=== PATIENT | female | born 2000 | race Two or more races ===

== ENCOUNTER 2024-04-04 04:55 | Inpatient (IN) ==
[2024-04-04 05:14] VITALS: BMI 21.2
[2024-04-04 05:24] LABS: BILIRUBIN,URINE NEGATIVE (NEGATIVE); BLOOD/HEMOGLOBIN,URINE NEGATIVE (NEGATIVE); GLUCOSE, URINE NEGATIVE (NEGATIVE); KETONES,URINE NEGATIVE (NEGATIVE); LEUKOCYTE ESTERASE ,URINE NEGATIVE (NEGATIVE); NITRITES,URINE NEGATIVE (NEGATIVE); PROTEIN,URINE NEGATIVE (NEGATIVE); UROBILINOGEN,URINE NORMAL (NORMAL)
[2024-04-04] MEDS: D5 1/2 NS 1,000 ML 1,000 ML IV ONE ×2 (05:26→18:16)
[2024-04-04 05:30] LABS: AMNISURE ROM TEST THERE IS A RUPTURE (NO RUPTURE); APPEARANCE,URINE CLEAR (CLEAR); COLOR,URINE YELLOW (YELLOW)
[2024-04-04 05:37] LABS: BASOPHILS % (AUTO) 0.3 % (0.2-1.0); EOSINOPHILS # (AUTO) 0.1 x10^3/uL (0.0-0.2); EOSINOPHILS % (AUTO) 0.7 % (0.9-2.9); HEMATOCRIT 40.8 % (36.0-47.0); HEMOGLOBIN 13.5 g/dL (12.0-16.0); LYMPHOCYTES # (AUTO) 3.4 X10^3/uL (1.3-2.9); LYMPHOCYTES % (AUTO) 27.8 % (21.0-51.0); MEAN CORPUSCULAR HEMOGLOBIN 30.9 pg (27.0-34.0); MEAN CORPUSCULAR HGB CONC 33.1 g/dL (33.0-35.0); MEAN CORPUSCULAR VOLUME 93.3 fL (80.0-100.0); MEAN PLATELET VOLUME 8.7 fL (7.4-11.0); MONOCYTES # (AUTO) 1.3 x10^3/uL (0.3-0.8); MONOCYTES % (AUTO) 10.6 % (0.0-13.0); NEUTROPHILS # (AUTO) 7.5 x10^3/uL (2.2-4.8); NEUTROPHILS % (AUTO) 60.6 % (42.0-75.0); PLATELET COUNT 221 X10^3/uL (150.0-450.0); RED BLOOD COUNT 4.37 X10^6/uL (3.5-5.4); RED CELL DISTRIBUTION WIDTH 13.3 % (11.6-16.5); WHITE BLOOD COUNT 12.3 X10^3/uL (3.6-10.0)
[2024-04-04 05:48] LABS: ALANINE AMINOTRANSFERASE 20 Units/L (12-78); ALBUMIN 2.8 g/dL (3.4-5.0); ALKALINE PHOSPHATASE 169 Units/L (46-116); ASPARTATE AMINO TRANSFERASE 24 Units/L (15-37); BLOOD UREA NITROGEN 6 mg/dL (7-18); CALCIUM 9.7 mg/dL (8.5-10.1); CARBON DIOXIDE 23.1 mmol/L (21-32); CHLORIDE 102 mmol/L (98-107); COR CA(FOR HYPOALB) 10.7 mg/dL (8.5-10.1); CREATININE 0.62 mg/dL (0.55-1.02); GLUCOSE 89 mg/dL (65-99); POTASSIUM 3.6 mmol/L (3.5-5.1); SODIUM 137 mmol/L (136-145); TOTAL PROTEIN 7.3 g/dL (6.4-8.2); eGFR NON BLACK RACES > 60 (>60)
[2024-04-04] MEDS: AMPICILLIN VIAL 2 GRAM 2 G in NS 100 ML IV + SPIKE MINIBAG* 100 ML IV SCH (06:23)
[2024-04-04] MEDS ORDERED: ZOFRAN INJ 4 MG VIAL IVP PRN (07:08)
[2024-04-04] MEDS ORDERED: REGLAN INJ 10 MG VIAL IVP PRN (07:08)
--- NOTE | 2024-04-04 07:08 | DR.OB ---
OB QUICK NOTE Assessment/Plan (1) Active labor at term: Assessment/Plan: L&D at 6:45am S-No complaint except CTX. O-Afebrile,VSS RDL=715 with good LTV, +accel, no decel. CTX=q 1 1/2 min., strong by palpation CVX=4cm/50%/0/VTX AROM with clear fluid. IUPC and FSE placed. A-IUP at 39 5/7 weeks in active labor +GBS P-Begin pitocin augmentation as needed Begin IV ABX in labor for +GBS F/U labs Anticipate
[2024-04-04] MEDS: OXYTOCIN 20 UNIT/1,000 ML-NS 20 UNIT/1,000 ML PLAST..BAG IV PRN (07:30)
[2024-04-04] MEDS: NUBAIN INJ 20 MG AMP IVP PRN (07:45)
[2024-04-04] MEDS: AMPICILLIN VIAL 1 GRAM 1 G in NS 50 ML IV 50 ML IV SCH (10:35)
[2024-04-04] MEDS: LR 1,000 ML IV 1,000 ML IV ONE (11:23)
[2024-04-04] MEDS: FENTANYL VIAL INJ 100 mcg ONE (12:16)
[2024-04-04] MEDS: NAROPIN EPIDURAL 0.2% 100 ML ONE (12:22)
[2024-04-04] MEDS ORDERED: MILK OF MAGNESIA PO PRN (16:55)
[2024-04-04] MEDS ORDERED: MOTRIN TAB 800 MG PO PRN (16:55)
[2024-04-04] MEDS ORDERED: AMBIEN PO PRN (16:55)
[2024-04-04] MEDS ORDERED: DERMOPLAST PAIN RELIEF SPRAY TOP PRN (16:55)
[2024-04-04] MEDS: AMPICILLIN VIAL 2 GRAM ONE (18:16)
[2024-04-04] MEDS: PITOCIN ONE (18:17)
[2024-04-04] MEDS: NUBAIN INJ 200 MG VIAL MULTIDOSE ONE ×2 (18:17→18:18)
[2024-04-04] MEDS: PITOCIN IVP ONE (18:17)
[2024-04-04] MEDS: NS 100 ML IV 100 ML ONE ×3 (18:17→18:21)
[2024-04-04] MEDS: D5 1/2 NS 1,000 ML 1,000 ML IV SCH (18:18)
[2024-04-04] MEDS: XYLOCAINE 1 % (PLAIN) ONE (18:18)
[2024-04-04] MEDS: OXYTOCIN 20 UNIT/1,000 ML-NS 20 UNIT/1,000 ML PLAST..BAG IV SCH (18:18)
[2024-04-04] MEDS: AMPICILLIN VIAL 1 GRAM ONE ×2 (18:20→18:21)
[2024-04-04] MEDS: BETADINE SOLN ONE (18:21)
[2024-04-04] MEDS: MOTRIN TAB 800 MG PO PRN (20:00)
[2024-04-05 04:53] LABS: HEMATOCRIT 40.5 % (36.0-47.0); HEMOGLOBIN 13.5 g/dL (12.0-16.0)
[2024-04-05] MEDS ORDERED: CONSULT PHARMACY - POTASSIUM & MAGNESIUM XX SCH ×2 (07:00)
[2024-04-05] MEDS: PRENATAL PLUS PO SCH (09:22)
[2024-04-05] MEDS: K-DUR TAB 20 MEQ PO SCH (09:22)
[2024-04-05] MEDS: ADACEL or BOOSTRIX TDaP VACCINE IM ONE (15:25)
[2024-04-06 11:25] VITALS: PULSE 76; TEMP 97.7; O2SAT 100
[2024-04-06 15:44] VITALS: BP 121/72
[2024-04-06 15:47] VITALS: RESP 18
== END 2024-04-06 15:30 | disposition home or self-care (01) | DRG 807 ==
LOC: ER 04:55 → LD 05:37 → MED/SURG 17:34
PROVIDERS: ADMIT Specialist; ATTEND Obstetrics & Gynecology Obstetrics